=== PATIENT | female | born 1960 | race Caucasian/White ===

== ENCOUNTER 2018-12-21 11:25 | Inpatient (IN) | payer BC ==
[~2018-12-21] VITALS: Ht 165.1 cm; Wt 56.8 kg
[2018-12-21 12:22] LABS: CLARITY,URINE CLEAR (Clear); COLOR,URINE YELLOW (Yellow); GLUCOSE, URINE NEGATIVE (Neg); KETONES,URINE 15 mg/dl (Neg); LEUKOCYTE ESTERASE ,URINE NEGATIVE (Neg); NITRITES, URINE NEGATIVE (Neg); OCCULT BLOOD,URINE TRACE-INTACT (Neg); PH,URINE 6.5 (4.8-8.0); PROTEIN,URINE 30 mg/dl (Neg)
[2018-12-21 12:23] LABS: UA COLLECTION TYPE CLN CATCH MIDSTREAM
[2018-12-21 12:33] LABS: BASOPHILS % (AUTO) 0.2 % (0-1); EOSINOPHILS % (AUTO) 0.1 % (0-6); HEMATOCRIT 41.3 % (35.0-45.0); HEMOGLOBIN 13.9 g/dl (12.0-16.0); LYMPHOCYTES % (AUTO) 5.5 % (21-51); MEAN CORPUSCULAR HEMOGLOBIN 32.7 PG (27.0-31.0); MEAN CORPUSCULAR HGB CONC 33.6 g/dL (33.0-36.5); MEAN CORPUSCULAR VOLUME 97.1 FL (78-98); MONOCYTES # (AUTO) 0.6 X10'3 (0-0.9); MONOCYTES % (AUTO) 3.2 % (2-12); PLATELET COUNT 194 X10'3 (140-440); RED BLOOD COUNT 4.25 X10'6 (4.20-5.60); RED CELL DISTRIBUTION WIDTH 13.4 % (11.5-14.5); WHITE BLOOD COUNT 18.7 X10'3 (4.5-11.0)
[2018-12-21 12:43] LABS: MUCUS STRANDS FEW /LPF (Neg); SQUAMOUS EPITHELIAL CELL,UR FEW /LPF (FEW)
[2018-12-21 12:44] LABS: BACTERIA,URINE FEW /HPF (Neg); WBC,URINE 0-4 /HPF (0-4)
[2018-12-21 12:49] LABS: ALANINE AMINOTRANSFERASE 30 U/L (12-78); ALBUMIN 4.1 G/DL (3.4-5.0); ALBUMIN/GLOBULIN RATIO 0.9 (1.1-1.5); ALKALINE PHOSPHATASE 56 IU/L (46-116); ANION GAP 13 (8-16); ASPARTATE AMINO TRANSFERASE 19 U/L (10-37); BLOOD UREA NITROGEN 14 MG/DL (7-18); BUN/CREATININE RATIO 15.4 (6.6-38.0); CALCIUM 9.3 MG/DL (8.5-10.1); CHLORIDE 101 MMOL/L (99-107); CREATININE 0.91 MG/DL (0.40-0.90); GLUCOSE 117 MG/DL (70-104); LIPASE 127 U/L (73-393); POTASSIUM 3.5 MMOL/L (3.5-5.1); SODIUM 139 MMOL/L (135-145); TOTAL PROTEIN 8.8 G/DL (6.4-8.2); eGFR 63 ML/MIN
[2018-12-21] MEDS ORDERED: normal saline 1000ML IV soln IVB ONE (13:00)
[2018-12-21 13:23] LABS: MAGNESIUM 1.8 MG/DL (1.5-2.4)
[2018-12-21 13:34] LABS: PARTIAL THROMBOPLASTIN TIME 28 SECONDS (22-32)
[2018-12-21] MEDS ORDERED: mag hydrox/Alum hydrox/simeth 30ml oral suspension PO PRN (13:40)
[2018-12-21] MEDS ORDERED: ondansetron/PF 4mg/2ml inj IV PRN (13:40)
[2018-12-21] MEDS ORDERED: magnesium hydroxide 30ml (MOM) UD suspension PO PRN (13:40)
[2018-12-21] MEDS ORDERED: morphine 2 MG/ML inj. syringe IV PRN ×2 (13:40)
[2018-12-21] MEDS ORDERED: HYDROcodone/acetaminophen 10/325mg tab PO PRN (13:40)
[2018-12-21] MEDS ORDERED: HYDROcodone/acetaminophen 5mg/325mg tablet PO PRN (13:40)
[2018-12-21] MEDS ORDERED: acetaminophen 325mg tablet PO PRN ×2 (13:40)
[2018-12-21] MEDS ORDERED: NO HOME MEDS ×2 (14:19→16:04)
[2018-12-21] MEDS: dextrose 5%-1/2 normal saline 1,000 ML IV SCH (14:54)
--- NOTE | 2018-12-21 16:44 | NUR ---
PATIENT UP TO THE BATHROOM.
--- NOTE | 2018-12-21 18:07 | NUR ---
Spoke to Dr. Marks regarding patient, said that he will order oral contrast and that patient can start on clear liquid diet-dietary faxed.
--- NOTE | 2018-12-21 18:50 | NUR ---
Patient in room [facility]. I have received report from JIMMIE CASTORENA RN and had the opportunity to ask questions and WILL assume patient care upon arrival to the floor. Addendum: 12/21/18 at 1904 by Elizabeth Hi RN Amended: Links added.
--- NOTE | 2018-12-21 18:55 | NUR ---
pt arrived to the floor from the er and net programmer settled her into bed and did her vitals and no complaints at this time.
--- NOTE | 2018-12-21 19:15 | NUR ---
pt assessed Mom at bedside and then and pt son arrived to the room.
--- NOTE | 2018-12-21 21:00 | NUR ---
pt c/o severe headache and abd pain. medicated with tylenol for this and morphine. pt taking jello and water after drinking gastroview for ct of abd in am.
[2018-12-21] MEDS: diatr meglu/diatrizoate 30ml oral sol.-(3 dose) bottle PO SCH (21:14)
[2018-12-21 22:08] VITALS: BP 120/63
--- NOTE | 2018-12-21 23:08 | NUR ---
resting eyes closed pt bp decreased due to resting and receiving pain medication for abd pain and headache.
[2018-12-22] VITALS: BP 92/47
[2018-12-22] MEDS: dextrose 5%-1/2 normal saline 1,000 ML IV SCH (00:27)
--- NOTE | 2018-12-22 00:30 | NUR ---
up ambulating to brp tolerated well states headache gone and feeling much better now.
--- NOTE | 2018-12-22 02:30 | NUR ---
resting eyes closed without changes.
--- NOTE | 2018-12-22 03:52 | NUR ---
resting without changes.
--- NOTE | 2018-12-22 04:36 | NUR ---
awoke briefly, rolled over to get some more rest.
[2018-12-22 06:07] LABS: BASOPHILS % (AUTO) 0.4 % (0-1); EOSINOPHILS # (AUTO) 0.1 X10'3 (0-0.9); EOSINOPHILS % (AUTO) 0.8 % (0-6); HEMATOCRIT 32.6 % (35.0-45.0); HEMOGLOBIN 11.1 g/dl (12.0-16.0); LYMPHOCYTES # (AUTO) 1.4 X10'3 (1.1-4.8); LYMPHOCYTES % (AUTO) 11.9 % (21-51); MEAN CORPUSCULAR HEMOGLOBIN 32.7 PG (27.0-31.0); MEAN PLATELET VOLUME 9.4 FL (7.4-10.4); MONOCYTES # (AUTO) 0.6 X10'3 (0-0.9); NEUTROPHILS # (AUTO) 9.8 X10'3 (1.8-7.7); NEUTROPHILS % (AUTO) 81.9 % (42-75); PLATELET COUNT 150 X10'3 (140-440); RED BLOOD COUNT 3.39 X10'6 (4.20-5.60); RED CELL DISTRIBUTION WIDTH 12.9 % (11.5-14.5); WHITE BLOOD COUNT 11.9 X10'3 (4.5-11.0)
[2018-12-22 06:31] LABS: ALBUMIN 2.7 G/DL (3.4-5.0); ANION GAP 8 (8-16); BLOOD UREA NITROGEN 6 MG/DL (7-18); BUN/CREATININE RATIO 8.7 (6.6-38.0); CHLORIDE 110 MMOL/L (99-107); CREATININE 0.69 MG/DL (0.40-0.90); GLUCOSE 103 MG/DL (70-104); POTASSIUM 3.7 MMOL/L (3.5-5.1); SODIUM 143 MMOL/L (135-145); eGFR 87 ML/MIN
--- NOTE | 2018-12-22 06:38 | NUR ---
Problems reprioritized. Patient report given, questions answered & plan of care reviewed with Vivian Jose. Addendum: 12/22/18 at 0639 by Elizabeth Hi RN Amended: Links added.
[2018-12-22 07:00] VITALS: BP 96/54
[2018-12-22] MEDS: diatr meglu/diatrizoate 30ml oral sol.-(3 dose) bottle PO SCH (07:00)
--- NOTE | 2018-12-22 10:12 | NUR ---
Pt discharged home with and mother. She was feeling better this Am, some complaints of headache and slight abdominal ache but still better. She was encouraged to stay if she was concerned but wanted to go home. She was educated on importance of coming back if problems continue and are not resolving or if they are getting worse, if she has no bm, or stops passing gas, she was very receptive to information. and mother picked her up, IV out, no tele and all belongings taken from room. Pt does not have pcp, recommendation to try to find PCP given and told her she could try calling [facility] and see if they are able to accept her, she was looking for pcp.
== END 2018-12-22 10:12 | disposition home or self-care (01) | DRG 392 ==
LOC: ER 11:27 → SUR 3N 18:34
PROVIDERS: ADMIT Internal Medicine; ATTEND Hospitalist
DX: R10.30 Lower abdominal pain, unspecified (principal); D72.829 Elevated white blood cell count, unspecified; Z98.891 History of uterine scar from previous surgery
CPT/HCPCS: 36415; 74176; 80048; 80053; 81001; 83605; 83690; 83735; 84145; 85025; 85610; 85730; 87040; 87081; 93005; 96361; 96374; 96375; 99285; G0378; J2270; J2405; Q9963